=== PATIENT | female | born 2005 | race Caucasian/White ===

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

== ENCOUNTER 2024-06-08 02:17 | Emergency (ER) | payer MEDICAID, SELFPAY ==
[2024-06-08 02:21] VITALS: PULSE 75; RESP 20; TEMP 36.8; O2SAT 100; BMI 18.9
--- NOTE | 2024-06-08 02:32 | ED.GENADULT ---
HPI - General Adult General Chief complaint: General Medical Stated complaint: jaw lock Time Seen by Provider: 06/08/24 02:27 Source: patient Mode of arrival: ambulatory Limitations: no limitations History of Present Illness ED Provider: HPI narrative: Patient's history of mandible dislocation in the past today patient was laughing prior to arrival and unable to close her mouth Related Data Home Medications ?Medication ?Instructions ?Recorded ?Confirmed No Known Home Meds 04/11/21 04/11/21 Allergies Allergy/AdvReac Type Severity Reaction Status Date / Time No Known Allergies Allergy Verified 06/08/24 02:23 Review of Systems Review of Systems: Yes all other systems are reviewed and are negative PMFSH Past Medical History Medical History Post-dates No known health problems Social History Social History Household Members: Family Housing: Apartment Are you a primary assistant child care teacher to a significant other at home: No Do you presently have visiting nurse or other home services: No Alcohol intake: never Patient Tobacco Use Status: Never used Tobacco Trauma History: none Advance Directives: Yes Advance Directives Information Provided: Yes Advance Directives on File: No Current occupational status: employed and student Current occupation: RT handed Sexual orientation: Straight/Heterosexual Gender identity: Female Physical Exam ED Vital Signs: Vital Signs - 24 hr 06/08/24 02:21 06/08/24 02:53 Temperature 98.3 F 98.1 F Pulse Rate 75 59 Respiratory Rate 20 16 Blood Pressure 116/72 Pulse Oximetry 100 96 Oxygen Delivery Method Room Air Room Air BMI result Body Mass Index 18.9 Appearance: Alert. Oriented X3. No acute distress. Eyes: no pallor or icterus ENT: Pharynx normal. Oral Mucosa moist Neck: Normal inspection. Neck supple. CVS: Normal heart rate and rhythm. Pulses normal. Respiratory: No respiratory distress. Equal air entry bilateral, no wheezing/rales/rhonchi Abd: soft, not tender Skin: Skin warm and dry. Normal skin color. Normal skin turgor. Extremities: No lower extremity edema, no calf tenderness Neuro: Oriented X 3. Medical Decision Making Medical Decision Making MDM Narrative: Closed reduction of the jaw done manually patient is able to close the mouth able to laugh Discharge Plan Discharge Clinical Impression: Closed dislocation of mandible Patient Disposition: Home, Self-Care Instructions: Jaw Dislocation (ED) Additional Instructions: Care as advised Prescriptions: No Action No Known Home Meds Interventions: ED Discharge Assessment Last Done: 06/08/24 02:53 Print Language: Comoran
[2024-06-08 02:53] VITALS: BP 116/72; PULSE 59; RESP 16; TEMP 36.7; O2SAT 96
== END 2024-06-08 03:00 | disposition home or self-care (01) ==
PROVIDERS: Emergency Provider Internal Medicine
DX: S03.00XA Dislocation of jaw, unspecified side, initial encounter (principal); X58.XXXA Exposure to other specified factors, initial encounter; Y93.9 Activity, unspecified; Y92.9 Unspecified place or not applicable; Y99.8 Other external cause status
CPT/HCPCS: 99282; 99283